=== PATIENT | female | born 1985 | race Caucasian/White ===

== ENCOUNTER 2017-09-13 20:07 | Emergency (ER) | payer MEDICAID ==
[~2017-09-13 20:07] MED LIST: VIIB40TA PO; ZOVI200C24 PO
[2017-09-13 21:28] VITALS: BP 138/82; PULSE 100; RESP 18; TEMP 99.4; O2SAT 99
[2017-09-13] MEDS ORDERED: AMOX875T PO (22:36)
--- NOTE | 2017-09-13 22:42 | PD ---
HPI Chief Complaint: ENT Complaint Time Seen by Provider: 22:36 Travel History International Travel<30 days: No Contact w/Intl Traveler<30days: No Traveled to known affect area: No History of Present Illness HPI 31-year-old white female presents emergency department with complaints of sore throat developed a subjective fever. She has difficulty swallowing due to pain. She has slight congestion. She denies any nausea or vomiting. No abdominal pain or diarrhea. No dysuria frequency. She does report some myalgias. PFSH Past Medical History Bipolar Disorder: Yes Anxiety: Yes Depression: Yes Diminished Hearing: No Endocrine: No Psychiatric: Yes Tetanus Vaccination: < 5 Years ?: Not : 1 Para: 1 Miscarriage: 0 : 0 Past Surgical History Oral Surgery: Yes (UPPER MOLARS REMOVED) Other Surgery: Yes (BARTHOLINS CYST MARSUPIALIZATION X2) Social History Alcohol Use: Yes (Socially ) Tobacco Use: Yes (1 pk weekly) Substance Use: No Allergies-Medications (Allergen,Severity, Reaction): Coded Allergies: No Known Allergies (Verified Adverse Reaction, Unknown, 09/13/17) Reported Meds & Prescriptions Reported Meds & Active Scripts Active Amoxicillin 875 Mg Tab 875 Mg PO BID 10 Days Zovirax (Acyclovir) 200 Mg Cap 200 Mg PO 5 TIMES A DAY 10 Days Reported Viibryd (Vilazodone) 40 Mg Tab 20 Mg PO DAILY Review of Systems General / Constitutional: Positive: Fever, No: Chills Eyes: No: Visual changes HENT: Positive: Sore Throat, No: Headaches Cardiovascular: No: Chest Pain or Discomfort Respiratory: No: Shortness of Breath Gastrointestinal: No: Nausea, Vomiting, Abdominal Pain Genitourinary: No: Dysuria Musculoskeletal: Positive: Myalgias, No: Pain Skin: No Rash Neurologic: No: Weakness Psychiatric: No: Depression Endocrine: No: Polydipsia Hematologic/Lymphatic: No: Easy Bruising Physical Exam Narrative GENERAL: Well-developed, well-nourished in no acute distress. Nontoxic appearing. HEAD: Normocephalic, atraumatic. EYES: Pupils equal round and reactive. Extraocular motions intact. No scleral icterus. No injection or drainage. ENT: TMs clear without erythema. The external auditory canals clear. Nose: clear . Posterior pharynx is erythematous with edematous tonsils. No exudate. Positive cervical and tonsillar adenopathy uvula midline. Airway patent. NECK: Trachea midline.Supple, nontender, moves head freely. No central bony tenderness or spasm. CARDIOVASCULAR: Regular rate and rhythm without murmurs, gallops, or rubs. RESPIRATORY: Clear to auscultation. Breath sounds equal bilaterally. No wheezes , rales, or rhonchi. GASTROINTESTINAL: Abdomen soft, non-tender, nondistended. No hepato-splenomegaly , or palpable masses. No guarding. EXTREMITIES: No clubbing, cyanosis, or edema. No joint tenderness, effusion, or edema noted. BACK: Nontender without deformity or crepitance. No flank tenderness. Data Data Last Documented VS Vital Signs Date Time Temp Pulse Resp B/P (MAP) Pulse Ox O2 Delivery O2 Flow Rate FiO2 09/13/17 21:28 99.4 100 18 138/82 (100) 99 Orders Orders Ed Discharge Order (09/13/17 22:37) Amoxicillin (Trimox) (09/13/17 22:45) Dexamethasone (Decadron) (09/13/17 22:45) MDM Medical Decision Making Medical Screen Exam Complete: Yes Emergency Medical Condition: Yes Medical Record Reviewed: Yes Differential Diagnosis MDM: High Differential diagnoses: Strep throat, viral pharyngitis, mono, peritonsillar abscess, retropharyngeal abscess, Isma's angina Narrative Course This is acute pharyngitis. Patient is given Amoxil 500 mg p.o. and Decadron 10 mg p.o. Diagnosis Primary Impression: Acute pharyngitis Qualified Codes: J02.9 - Acute pharyngitis, unspecified Patient Instructions: General Instructions Additional Instructions: Rest. Force fluids. Saltwater gargles. Tylenol and Advil. Chloraseptic Avon Cepastat lozenge. Amoxicillin. Follow-up with a primary care doctor in one week. Return to the ER if any problems. Med/Other Pt SpecificInfo: Prescription(s) given Scripts Amoxicillin (Amoxicillin) 875 Mg Tab 875 MG PO BID for Infection for 10 Days, #20 TAB 0 Refills Prov: Shawna López DO 09/13/17 Disposition: 01 DISCHARGE HOME Condition: Stable Kory Gonzalez September 13, 2017 22:42
[2017-09-13] MEDS ORDERED: DEXAMETHASONE 4 MG TAB PO ONE (22:45)
[2017-09-13] MEDS ORDERED: AMOXICILLIN (TRIHYDRATE) 500 MG CAP PO ONE (22:45)
== END 2017-09-13 23:10 | disposition home or self-care (01) ==
LOC: NEPD 20:07
DX: J02.9 Acute pharyngitis, unspecified (principal); F17.200 Nicotine dependence, unspecified, uncomplicated
CPT/HCPCS: 99283; J8540